=== PATIENT | male | born 1940 | race Asian ===

== ENCOUNTER 2017-10-13 07:12 | Inpatient (IN) | payer OTHER ==
[2017-10-13] MEDS: FAMOTIDINE 20 MG TAB PO (06:00)
[2017-10-13] MEDS: DIPHENHYDRAMINE 50 MG CAP PO (06:00)
[2017-10-13] MEDS: DIAZEPAM 5 MG TAB PO (06:00)
[~2017-10-13 07:12] MED LIST: SOD CHLORIDE 0.45% 1,000 ML IV
[2017-10-13 08:17] LABS: ADD MAN DIFF? NO
[2017-10-13 08:25] LABS: BASOPHILS % 0.4 % (0.0-2.0); EOSINOPHILS # 0.2 10^3/ul (0.0-0.5); EOSINOPHILS % 2.4 % (0.0-7.0); HEMATOCRIT 46.7 % (42.0-52.0); LYMPHOCYTES # 1.4 10^3/ul (0.8-2.9); LYMPHOCYTES % 19.9 % (15.0-51.0); MEAN CORPUSCULAR HEMOGLOBIN 31.2 pg (29.0-33.0); MEAN CORPUSCULAR HGB CONC 34.3 g/dl (32.0-37.0); MEAN PLATELET VOLUME 9.4 fl (7.4-10.4); MONOCYTE # 0.5 10^3/ul (0.3-0.9); MONOCYTES % 7.2 % (0.0-11.0); NEUTROPHIL # 4.9 10^3/ul (1.6-7.5); NEUTROPHILS % 68.4 % (39.0-77.0); PLATELET COUNT 175 10^3/UL (140-415); RED BLOOD COUNT 5.13 10^6/ul (4.70-6.10); RED CELL DISTRIBUTION WIDTH 11.9 % (11.5-14.5)
[2017-10-13 08:25] LABS: WHITE BLOOD COUNT 7.1 10^3/ul (4.8-10.8)
[2017-10-13 08:49] LABS: INR 0.92; PROTIME 12.4 Sec (11.9-14.9)
[2017-10-13 08:50] LABS: PARTIAL THROMBOPLASTIN TIME 30.3 Sec (25.0-35.0)
[2017-10-13] MEDS ORDERED: NITROGLYCERIN (IC) 100 MCG/ML INJ (08:53)
[2017-10-13] MEDS ORDERED: IODIXANOL LOCM 100 ML BTL (08:53)
[2017-10-13] MEDS ORDERED: VERAPAMIL 5 MG INJ (08:53)
[2017-10-13] MEDS ORDERED: FENTAnyl 50 MCG/ML VIAL (08:53)
[2017-10-13] MEDS ORDERED: HEPARIN 1000 UNITS/ML 10 ML INJ (08:53)
[2017-10-13] MEDS ORDERED: MIDAZOLAM 1 MG/ML 2 ML INJ (08:53)
[2017-10-13] MEDS ORDERED: LIDOCAINE 1% (MDV) 20 ML INJ (08:53)
[2017-10-13 08:54] LABS: ALANINE AMINOTRANSFERASE 30 IU/L (13-69); ALBUMIN 4.7 g/dl (3.3-4.9); ALBUMIN/GLOBULIN RATIO 1.42; ALKALINE PHOSPHATASE 83 IU/L (42-121); ANION GAP 16 (8-16); ASPARTATE AMINO TRANSFERASE 24 IU/L (15-46); BILIRUBIN,INDIRECT 0.7 mg/dl (0-1.1); BILIRUBIN,TOTAL 0.7 mg/dl (0.2-1.3); CARBON DIOXIDE 28 mmol/L (21-31); CHLORIDE 107 mmol/L (97-110); CHOL/HDL RATIO 3.5 RATIO; CHOLESTEROL 116 mg/dl (100-200); GLUCOSE 106 mg/dl (70-220); HDL CHOLESTEROL 33 mg/dl (31-75); LDL CHOLESTEROL,CALCULATED 51 mg/dl; TRIGLYCERIDES 162 mg/dl (0-149)
[2017-10-13 08:55] LABS: BLOOD UREA NITROGEN 18 mg/dl (7-20); CALCIUM 9.7 mg/dl (8.4-10.2); CREATININE 1.04 mg/dl (0.61-1.24); POTASSIUM 4.3 mmol/L (3.5-5.1)
[2017-10-13 08:57] LABS: SODIUM 147 mmol/L (135-144)
[2017-10-13] MEDS ORDERED: ONDANSETRON 4 MG INJ IV ×2 (10:30→17:00)
[2017-10-13] MEDS ORDERED: ACETAMINOPHEN 325 MG TAB PO ×2 (10:30→17:00)
[2017-10-13] MEDS ORDERED: AL HYDROX/MG HYDROX/SIMETH 30 ML CUP PO (10:30)
[2017-10-13] MEDS: HOLD all METFORMIN and METFORMIN CONTAINING medications for 48 hours post procedure. Chec XX (10:30)
[2017-10-13] MEDS ORDERED: morphine 2 MG INJ IV (10:30)
[2017-10-13] MEDS: SOD CHLORIDE 0.9% 1,000 ML IV (10:56)
[2017-10-13] MEDS: METOPROLOL (XL) 25 MG TAB PO (17:00)
[2017-10-13] MEDS ORDERED: DOCUSATE SODIUM 100 MG CAP PO (17:00)
[2017-10-13] MEDS ORDERED: NITROGLYCERIN (SL) 0.4 MG TAB SL (17:00)
[2017-10-13 18:00] LABS: URIC ACID 7.7 mg/dl (3.1-7.9)
[2017-10-13] MEDS: TAMSULOSIN (SR) 0.4 MG CAP PO (18:09)
[2017-10-13] MEDS: ISOSORBIDE MONONITRATE(SR)30 MG TAB PO (18:10)
[2017-10-14] MEDS: PANTOPRAZOLE (EC) 40 MG TAB PO (05:28)
[2017-10-14] MEDS: HYDROCODONE/APAP (5/325) TAB PO ×2 (05:36→21:42)
[2017-10-14 07:59] LABS: ADD MAN DIFF? NO
[2017-10-14 08:03] LABS: BASOPHILS % 0.3 % (0.0-2.0); EOSINOPHILS # 0.1 10^3/ul (0.0-0.5); EOSINOPHILS % 1.4 % (0.0-7.0); HEMATOCRIT 44.9 % (42.0-52.0); HEMOGLOBIN 15.2 g/dl (14.0-18.0); LYMPHOCYTES # 1.5 10^3/ul (0.8-2.9); MEAN CORPUSCULAR HEMOGLOBIN 31.3 pg (29.0-33.0); MEAN CORPUSCULAR HGB CONC 33.9 g/dl (32.0-37.0); MEAN CORPUSCULAR VOLUME 92.4 fl (82.0-101.0); MEAN PLATELET VOLUME 9.9 fl (7.4-10.4); MONOCYTE # 0.5 10^3/ul (0.3-0.9); MONOCYTES % 7.2 % (0.0-11.0); NEUTROPHIL # 4.8 10^3/ul (1.6-7.5); PLATELET COUNT 173 10^3/UL (140-415); RED BLOOD COUNT 4.86 10^6/ul (4.70-6.10); RED CELL DISTRIBUTION WIDTH 11.9 % (11.5-14.5)
[2017-10-14 08:25] LABS: ANION GAP 17 (8-16); BLOOD UREA NITROGEN 17 mg/dl (7-20); CALCIUM 8.8 mg/dl (8.4-10.2); CARBON DIOXIDE 24 mmol/L (21-31); CHLORIDE 109 mmol/L (97-110); GLUCOSE 101 mg/dl (70-220); POTASSIUM 4.1 mmol/L (3.5-5.1); SODIUM 146 mmol/L (135-144)
[2017-10-14] MEDS: TAMSULOSIN (SR) 0.4 MG CAP PO (08:29)
[2017-10-14] MEDS: METOPROLOL (XL) 25 MG TAB PO (08:31)
[2017-10-14] MEDS: ISOSORBIDE MONONITRATE(SR)30 MG TAB PO (08:31)
[2017-10-14] MEDS: HOLD all METFORMIN and METFORMIN CONTAINING medications for 48 hours post procedure. Chec XX (08:32)
[2017-10-15] MEDS ORDERED: CEFAZOLIN 2 GM/50 ML (PMX) 50 ML IVPB (06:00)
[2017-10-15] MEDS: PANTOPRAZOLE (EC) 40 MG TAB PO (06:21)
[2017-10-15] MEDS ORDERED: NITROGLYCERIN 50 MG/D5W 250 ML BTL (07:00)
[2017-10-15] MEDS ORDERED: DOPamine-D5W 1.6 MG/ML 250 ML (07:00)
[2017-10-15] MEDS: ISOSORBIDE MONONITRATE(SR)30 MG TAB PO (08:24)
[2017-10-15] MEDS: TAMSULOSIN (SR) 0.4 MG CAP PO (08:25)
[2017-10-15] MEDS: LOSARTAN 25 MG TAB PO (08:25)
[2017-10-15] MEDS ORDERED: LISINOPRIL 5 MG TAB PO (09:00)
[2017-10-15] MEDS ORDERED: METOPROLOL (XL) 25 MG TAB PO (09:00)
[2017-10-15] MEDS: EPINEPHrine 4 MG in DEXTROSE 5% 246 ML IV (13:30)
[2017-10-15] MEDS ORDERED: PHENYLephrine 20MG IN 250 ML 250 ML IV ×2 (13:30→19:00)
[2017-10-15] MEDS: HEPARIN (10000 UNITS/ML) 10,000 UNIT, MILRINONE LACTATE 10 MG in SOD CHLORIDE 0.9% 1,00... SC (13:30)
[2017-10-15] MEDS: ASPIRIN 600 MG SUPP PR (13:30)
[2017-10-15] MEDS: INSULIN HUMAN REGULAR 100 UNIT in SOD CHLORIDE 0.9% 99 ML IVPB (13:30)
[2017-10-15] MEDS ORDERED: NORepinephrine 8MG/250 ML (PMX 250 ML IV (13:30)
[2017-10-15] MEDS: MILRINONE LACTATE 2 MG in SOD CHLORIDE 0.9% 50 ML IV (13:30)
[2017-10-15] MEDS ORDERED: MIDAZOLAM 5 ML ×3 (13:35→17:41)
[2017-10-15] MEDS ORDERED: POTASSIUM CHLORIDE 40 MEQ INJ (13:36)
[2017-10-15] MEDS ORDERED: HEPARIN 1000 UNITS/ML 10 ML INJ ×2 (13:36→14:34)
[2017-10-15] MEDS ORDERED: LIDOCAINE 100 MG SYRINGE (13:37)
[2017-10-15] MEDS ORDERED: CA CHLORIDE 10% 10 ML SYRINGE (13:37)
[2017-10-15] MEDS ORDERED: MANNITOL 20% 250 ML IV (13:38)
[2017-10-15] MEDS ORDERED: NA BICARBONATE 8.4% 50 ML SYG ×2 (13:38)
[2017-10-15] MEDS ORDERED: AMINOCAPROIC ACID 5 GM INJ (13:38)
[2017-10-15] MEDS ORDERED: MAGNESIUM SULFATE (MG) 50% 10 ML INJ (13:38)
[2017-10-15] MEDS ORDERED: ALBUMIN HUMAN 25% 100 ML (13:38)
[2017-10-15] MEDS ORDERED: PHENYLephrine 10 MG INJ (13:39)
[2017-10-15] MEDS ORDERED: CEFAZOLIN 1 GM INJ ×2 (14:22→17:06)
[2017-10-15] MEDS ORDERED: PHENYLephrine (100 MCG/ML) 5ML SYG ×2 (15:06→17:05)
[2017-10-15] MEDS: HEPARIN 1000 UNITS/ML 10 ML INJ (15:31)
[2017-10-15] MEDS: VANCOMYCIN 1 GM INJ (15:32)
[2017-10-15] MEDS: PAPAVERINE 60 MG INJ (15:32)
[2017-10-15] MEDS ORDERED: PROTAMINE 250 MG INJ (17:06)
[2017-10-15] MEDS ORDERED: ETOMIDATE 20 MG INJ (17:32)
[2017-10-15] MEDS ORDERED: ROCURONIUM 50 MG INJ (17:32)
[2017-10-15] MEDS ORDERED: LIDOCAINE 2% (SDV) 5 ML INJ (17:32)
[2017-10-15] MEDS ORDERED: FUROSEMIDE 20 MG INJ (17:33)
[2017-10-15] MEDS ORDERED: DEXTROSE 50% 50 ML SYRINGE IV ×2 (18:30)
[2017-10-15] MEDS ORDERED: HYDROmorphONE 0.5 MG/0.5 ML SYG IV (18:30)
[2017-10-15] MEDS ORDERED: ACETAMINOPHEN 650MG/20.3ML CUP NGT (18:30)
[2017-10-15] MEDS ORDERED: MAGNESIUM SULFATE 1 GM/D5W 100 ML IVPB (18:30)
[2017-10-15] MEDS ORDERED: OXYCODONE/ACETAMINOPHEN (5/325) TAB PO (18:30)
[2017-10-15] MEDS ORDERED: POTASSIUM CHLORIDE 50 ML IVPB (18:30)
[2017-10-15] MEDS: ACCU-CHEK XX ×6 (18:57→23:34)
[2017-10-15] MEDS ORDERED: NITROGLYCERIN 50 MG/D5W (PMX) 250 ML IV (19:00)
[2017-10-15] MEDS ORDERED: DOPamine-D5W 1.6 MG/ML 250 ML IV (19:00)
[2017-10-15 19:11] LABS: ABNORMAL IP MESSAGE 1; HEMATOCRIT 35.4 % (42.0-52.0); HEMOGLOBIN 12.3 g/dl (14.0-18.0); MEAN CORPUSCULAR HEMOGLOBIN 31.8 pg (29.0-33.0); MEAN CORPUSCULAR HGB CONC 34.7 g/dl (32.0-37.0); MEAN CORPUSCULAR VOLUME 91.5 fl (82.0-101.0); PLATELET COUNT 99 10^3/UL (140-415); POSITIVE DIFF @See below; RED BLOOD COUNT 3.87 10^6/ul (4.70-6.10); RED CELL DISTRIBUTION WIDTH 12.1 % (11.5-14.5)
[2017-10-15 19:11] LABS: WHITE BLOOD COUNT 14.4 10^3/ul (4.8-10.8)
[2017-10-15 19:14] LABS: ADD MAN DIFF? YES
[2017-10-15 19:17] LABS: MODE VENT - AC; MetHgb Mixed Venous 0.6 %; Mixed Venous COHb 0.2 %; Mixed Venous Oxygen Sat 73.6 mmHG (65.0-75.0); Mixed Venous Total Hemglobin 13.2 g/dl; Sample Type BLMV
[2017-10-15 19:22] LABS: Arterial Blood Gas Oxygen Sat 98.3 mmHG (95.0-100.0); Arterial COHb 0.3 % (0.0-3.0); Arterial Fraction of Oxyhgb 97.5 % (93.0-99.0); Arterial HCO3 24.9 mmol/L (22.0-26.0); Arterial MetHb 0.5 % (0.0-1.5); Arterial Total Hemglobin 13.2 g/dl (12.0-18.0); Arterial pCO2 46.2 mmhg (35-45); MODE VENT - AC; Site A-Line
[2017-10-15 19:30] LABS: Site VENOUS LINE
[2017-10-15] MEDS: CEFAZOLIN 1 GM/50 ML (PMX) 50 ML IVPB (19:32)
[2017-10-15] MEDS: DOPamine-D5W 1.6 MG/ML 250 ML IV (19:34)
[2017-10-15 19:35] LABS: ANION GAP 17 (8-16); BLOOD UREA NITROGEN 17 mg/dl (7-20); CALCIUM 8.2 mg/dl (8.4-10.2); CARBON DIOXIDE 26 mmol/L (21-31); CHLORIDE 106 mmol/L (97-110); CREATININE 0.86 mg/dl (0.61-1.24); GLUCOSE 123 mg/dl (70-220); MAGNESIUM 2.9 mg/dl (1.7-2.5); POTASSIUM 3.6 mmol/L (3.5-5.1); SODIUM 145 mmol/L (135-144)
[2017-10-15] MEDS: NITROGLYCERIN 50 MG/D5W (PMX) 250 ML IV (19:35)
[2017-10-15] MEDS: INSULIN HUMAN REGULAR 100 UNIT in SOD CHLORIDE 0.9% 99 ML IV (19:37)
[2017-10-15] MEDS: POTASSIUM CHLORIDE 40 MEQ, CALCIUM CHLORIDE 10% 1 GM in DEXTROSE 5%-0.225% NACL 1,000 ML IV (19:37)
[2017-10-15 19:40] LABS: BAND NEUTROPHILS % (M) 7 % (0-4); GIANT THROMBO% (M) 4 % (0-0); LYMPHOCYTES #M 2.4 10^3/ul (0.8-2.9); LYMPHOCYTES % (M) 17 % (15-51); MONOCYTE #M 0.1 10^3/ul (0.3-0.9); MONOCYTES % (M) 1 % (0-11); PLATELET ESTIMATE NORMAL; SEG NEUT #M 10.9 10^3/ul (1.6-7.5); SEGMENTED NEUTROPHILS (M) % 75 % (39-77); SMUDGE%M 16 % (0-0)
[2017-10-15 19:54] LABS: INR 1.37; PROTIME 17.1 Sec (11.9-14.9); PT RATIO 1.3
[2017-10-15 19:55] LABS: PARTIAL THROMBOPLASTIN TIME 30.3 Sec (25.0-35.0)
[2017-10-15] MEDS: ALBUMIN HUMAN 5% 250 ML IV ×2 (20:17→21:26)
[2017-10-15] MEDS: PHENYLephrine 40 MG in DEXTROSE 5% 496 ML IV (20:24)
[2017-10-15] MEDS: KCL 30 MEQ in NS 250 ML IVPB X1 IVPB (20:25)
[2017-10-15] MEDS: HYDROmorphONE 0.5 MG/0.5 ML SYG IV (21:12)
[2017-10-15] MEDS: ACETAMINOPHEN 650 MG SUPP PR (21:30)
[2017-10-16] MEDS: ACCU-CHEK XX ×24 (00:27→23:30)
[2017-10-16 01:19] LABS: POTASSIUM 4.6 mmol/L (3.5-5.1)
[2017-10-16] MEDS: CEFAZOLIN 1 GM/50 ML (PMX) 50 ML IVPB (02:00)
[2017-10-16] MEDS: POTASSIUM CHLORIDE 10 MEQ in SOD CHLORIDE 0.9% 50 ML IV (02:56)
[2017-10-16] MEDS: OXYCODONE/ACETAMINOPHEN (5/325) TAB PO ×2 (03:50→08:15)
[2017-10-16] MEDS: ONDANSETRON 4 MG INJ IV (04:14)
[2017-10-16] MEDS: PANTOPRAZOLE (EC) 40 MG TAB PO (05:11)
[2017-10-16 05:12] LABS: ADD MAN DIFF? NO
[2017-10-16 05:13] LABS: ABNORMAL IP MESSAGE 1; BASOPHILS % 0.1 % (0.0-2.0); EOSINOPHILS % 0.2 % (0.0-7.0); HEMATOCRIT 34.4 % (42.0-52.0); HEMOGLOBIN 11.5 g/dl (14.0-18.0); LYMPHOCYTES # 0.6 10^3/ul (0.8-2.9); LYMPHOCYTES % 4.8 % (15.0-51.0); MEAN CORPUSCULAR HEMOGLOBIN 31.2 pg (29.0-33.0); MEAN CORPUSCULAR HGB CONC 33.4 g/dl (32.0-37.0); MEAN CORPUSCULAR VOLUME 93.2 fl (82.0-101.0); MEAN PLATELET VOLUME 9.9 fl (7.4-10.4); MONOCYTES % 7.8 % (0.0-11.0); NEUTROPHIL # 10.6 10^3/ul (1.6-7.5); PLATELET COUNT 114 10^3/UL (140-415); POSITIVE DIFF @See below; RED BLOOD COUNT 3.69 10^6/ul (4.70-6.10); RED CELL DISTRIBUTION WIDTH 12.4 % (11.5-14.5)
[2017-10-16 05:13] LABS: WHITE BLOOD COUNT 12.4 10^3/ul (4.8-10.8)
[2017-10-16 05:38] LABS: ANION GAP 17 (8-16); BLOOD UREA NITROGEN 16 mg/dl (7-20); CALCIUM 8.8 mg/dl (8.4-10.2); CARBON DIOXIDE 27 mmol/L (21-31); CHLORIDE 108 mmol/L (97-110); CREATININE 0.98 mg/dl (0.61-1.24); GLUCOSE 156 mg/dl (70-220); MAGNESIUM 2.2 mg/dl (1.7-2.5); SODIUM 147 mmol/L (135-144)
[2017-10-16 05:54] LABS: INR 1.19; PARTIAL THROMBOPLASTIN TIME 40.4 Sec (25.0-35.0); PROTIME 15.3 Sec (11.9-14.9); PT RATIO 1.2
[2017-10-16] MEDS: PHENYLephrine 40 MG in DEXTROSE 5% 496 ML IV (06:51)
[2017-10-16] MEDS: TAMSULOSIN (SR) 0.4 MG CAP PO (08:15)
[2017-10-16] MEDS: ASPIRIN 325 MG TAB PO (08:15)
[2017-10-16] MEDS: ASPIRIN (EC) 81 MG TAB PO (09:00)
[2017-10-16] MEDS: KETOROLAC 15 MG INJ IV ×2 (09:59→19:39)
[2017-10-16] MEDS: ENOXAPARIN 40 MG/0.4 ML SYG SC (10:03)
[2017-10-16 11:32] LABS: AADO2 Arterial 102.2 mmHg (7.0-24.0); Arterial Base Excess -0.2 mmol/L (-3.0-3); Arterial COHb 0.3 % (0.0-3.0); Arterial Fraction of Oxyhgb 97.2 % (93.0-99.0); Arterial MetHb 0.5 % (0.0-1.5); Arterial Total Hemglobin 12.5 g/dl (12.0-18.0); Arterial pCO2 43.3 mmhg (35-45); Blood Gas PS 5; MODE VENT - CPAP; Site A-Line
[2017-10-16] MEDS: FUROSEMIDE 20 MG INJ IV (13:26)
[2017-10-16] MEDS: ALBUMIN HUMAN 5% 250 ML IV (13:26)
[2017-10-16] MEDS: HYDROmorphONE 0.5 MG/0.5 ML SYG IV ×3 (14:31→22:17)
[2017-10-16 19:41] LABS: HEMATOCRIT 33.8 % (42.0-52.0)
[2017-10-16] MEDS: ATORVASTATIN 40 MG TAB PO (20:19)
[2017-10-17] MEDS: ACCU-CHEK XX ×15 (00:14→13:52)
[2017-10-17] MEDS: HYDROmorphONE 0.5 MG/0.5 ML SYG IV ×4 (02:12→17:14)
[2017-10-17 04:57] LABS: ADD MAN DIFF? NO
[2017-10-17] MEDS: KETOROLAC 15 MG INJ IV ×2 (04:57→17:41)
[2017-10-17 04:58] LABS: WHITE BLOOD COUNT 11.4 10^3/ul (4.8-10.8)
[2017-10-17 04:58] LABS: ABNORMAL IP MESSAGE 1; BASOPHILS % 0.2 % (0.0-2.0); EOSINOPHILS # 0.1 10^3/ul (0.0-0.5); EOSINOPHILS % 0.6 % (0.0-7.0); HEMATOCRIT 33.1 % (42.0-52.0); HEMOGLOBIN 11.1 g/dl (14.0-18.0); LYMPHOCYTES # 0.8 10^3/ul (0.8-2.9); LYMPHOCYTES % 7.3 % (15.0-51.0); MEAN CORPUSCULAR HGB CONC 33.5 g/dl (32.0-37.0); MEAN CORPUSCULAR VOLUME 95.4 fl (82.0-101.0); MEAN PLATELET VOLUME 10.6 fl (7.4-10.4); MONOCYTES % 8.9 % (0.0-11.0); NEUTROPHIL # 9.4 10^3/ul (1.6-7.5); NEUTROPHILS % 82.5 % (39.0-77.0); PLATELET COUNT 87 10^3/UL (140-415); POSITIVE DIFF @See below; RED BLOOD COUNT 3.47 10^6/ul (4.70-6.10); RED CELL DISTRIBUTION WIDTH 12.5 % (11.5-14.5)
[2017-10-17] MEDS ORDERED: AMIODARONE 150MG/D5W BOLUS 100 ML (05:17)
[2017-10-17] MEDS: AMIODARONE 150MG/D5W BOLUS 100 ML IV (05:18)
[2017-10-17 05:23] LABS: ALANINE AMINOTRANSFERASE 24 IU/L (13-69); ALBUMIN 3.6 g/dl (3.3-4.9); ALKALINE PHOSPHATASE 38 IU/L (42-121); ANION GAP 14 (8-16); ASPARTATE AMINO TRANSFERASE 34 IU/L (15-46); BILIRUBIN,INDIRECT 1.2 mg/dl (0-1.1); BILIRUBIN,TOTAL 1.2 mg/dl (0.2-1.3); BLOOD UREA NITROGEN 28 mg/dl (7-20); CALCIUM 8.4 mg/dl (8.4-10.2); CARBON DIOXIDE 26 mmol/L (21-31); CHLORIDE 106 mmol/L (97-110); CREATININE 1.36 mg/dl (0.61-1.24); GLUCOSE 114 mg/dl (70-220); POTASSIUM 4.4 mmol/L (3.5-5.1); SODIUM 142 mmol/L (135-144)
[2017-10-17] MEDS: AMIODARONE 900 MG in DEXTROSE 5% 482 ML IV (05:43)
[2017-10-17] MEDS: PHENYLephrine 40 MG in DEXTROSE 5% 496 ML IV (05:55)
[2017-10-17] MEDS: PANTOPRAZOLE (EC) 40 MG TAB PO (05:58)
[2017-10-17] MEDS: TAMSULOSIN (SR) 0.4 MG CAP PO (08:22)
[2017-10-17] MEDS: MAGNESIUM SULFATE 4 GM/100 ML 100 ML IVPB (08:29)
[2017-10-17] MEDS: ENOXAPARIN 40 MG/0.4 ML SYG SC (08:29)
[2017-10-17] MEDS: INSULIN HUMAN REGULAR 100 UNIT in SOD CHLORIDE 0.9% 99 ML IV (12:35)
[2017-10-17] MEDS ORDERED: GLUCAGON 1 MG INJ IM (14:00)
[2017-10-17] MEDS ORDERED: GLUCOSE GEL 15 GRAM TUBE BUCCAL (14:00)
[2017-10-17] MEDS ORDERED: GLUCOSE GEL 15 GRAM TUBE PO ×2 (14:00)
[2017-10-17] MEDS: INSULIN GLARGINE [LANtus] 3 ML PEN SC (14:58)
[2017-10-17] MEDS: OXYCODONE/ACETAMINOPHEN (5/325) TAB PO (15:00)
[2017-10-17] MEDS: SOD CHLORIDE 0.45% 1,000 ML IV (15:50)
[2017-10-17] MEDS: INSULIN ASPART [NOVOLOG] 3 ML PEN SC ×2 (17:00→20:53)
[2017-10-17] MEDS: AMIODARONE 200 MG TAB PO (20:54)
[2017-10-17] MEDS: ATORVASTATIN 40 MG TAB PO (20:54)
[2017-10-18 05:11] LABS: ADD MAN DIFF? NO
[2017-10-18 05:25] LABS: ABNORMAL IP MESSAGE 1; BASOPHILS % 0.1 % (0.0-2.0); EOSINOPHILS # 0.1 10^3/ul (0.0-0.5); HEMATOCRIT 27.7 % (42.0-52.0); HEMOGLOBIN 9.4 g/dl (14.0-18.0); LYMPHOCYTES # 0.7 10^3/ul (0.8-2.9); MEAN CORPUSCULAR HEMOGLOBIN 31.3 pg (29.0-33.0); MEAN CORPUSCULAR HGB CONC 33.9 g/dl (32.0-37.0); MEAN CORPUSCULAR VOLUME 92.3 fl (82.0-101.0); MEAN PLATELET VOLUME 10.7 fl (7.4-10.4); MONOCYTES % 10.2 % (0.0-11.0); NEUTROPHIL # 8.3 10^3/ul (1.6-7.5); NEUTROPHILS % 80.9 % (39.0-77.0); PLATELET COUNT 94 10^3/UL (140-415); POSITIVE DIFF @See below; RED CELL DISTRIBUTION WIDTH 12.5 % (11.5-14.5)
[2017-10-18 05:25] LABS: WHITE BLOOD COUNT 10.2 10^3/ul (4.8-10.8)
[2017-10-18] MEDS: PANTOPRAZOLE (EC) 40 MG TAB PO (05:57)
[2017-10-18] MEDS: OXYCODONE/ACETAMINOPHEN (5/325) TAB PO ×3 (06:27→19:35)
[2017-10-18 06:42] LABS: ALANINE AMINOTRANSFERASE 24 IU/L (13-69); ALBUMIN 3.2 g/dl (3.3-4.9); ALBUMIN/GLOBULIN RATIO 1.28; ALKALINE PHOSPHATASE 45 IU/L (42-121); ANION GAP 12 (8-16); ASPARTATE AMINO TRANSFERASE 24 IU/L (15-46); BILIRUBIN,INDIRECT 0.6 mg/dl (0-1.1); BILIRUBIN,TOTAL 0.6 mg/dl (0.2-1.3); BLOOD UREA NITROGEN 31 mg/dl (7-20); CALCIUM 7.9 mg/dl (8.4-10.2); CARBON DIOXIDE 27 mmol/L (21-31); CHLORIDE 100 mmol/L (97-110); CREATININE 1.22 mg/dl (0.61-1.24); GLUCOSE 121 mg/dl (70-220); POTASSIUM 3.7 mmol/L (3.5-5.1); SODIUM 135 mmol/L (135-144); TOTAL PROTEIN 5.7 g/dl (6.1-8.1)
[2017-10-18] MEDS: INSULIN ASPART [NOVOLOG] 3 ML PEN SC (07:35)
[2017-10-18] MEDS: TAMSULOSIN (SR) 0.4 MG CAP PO (09:24)
[2017-10-18] MEDS: AMIODARONE 200 MG TAB PO ×2 (09:24→20:25)
[2017-10-18] MEDS: ENOXAPARIN 40 MG/0.4 ML SYG SC (09:26)
[2017-10-18] MEDS: FUROSEMIDE 20 MG INJ IV (13:56)
[2017-10-18] MEDS: ASPIRIN 81 MG TAB PO (13:56)
[2017-10-18] MEDS: KETOROLAC 15 MG INJ IV (16:46)
[2017-10-18] MEDS: INSULIN GLARGINE [LANtus] 3 ML PEN SC (19:44)
[2017-10-18] MEDS: ATORVASTATIN 40 MG TAB PO (20:26)
[2017-10-18] MEDS: METOPROLOL 5 MG INJ IV (20:45)
[2017-10-19] MEDS ORDERED: NORepinephrine 8MG/250 ML (PMX 250 ML IV (02:00)
[2017-10-19] MEDS: SOD CHLORIDE 0.9% 500 ML IV (02:17)
[2017-10-19 06:04] LABS: ADD MAN DIFF? NO
[2017-10-19 06:07] LABS: BASOPHILS % 0.1 % (0.0-2.0); EOSINOPHILS # 0.2 10^3/ul (0.0-0.5); EOSINOPHILS % 1.8 % (0.0-7.0); HEMATOCRIT 29.2 % (42.0-52.0); HEMOGLOBIN 10.2 g/dl (14.0-18.0); LYMPHOCYTES # 0.9 10^3/ul (0.8-2.9); LYMPHOCYTES % 9.5 % (15.0-51.0); MEAN CORPUSCULAR HEMOGLOBIN 31.9 pg (29.0-33.0); MEAN CORPUSCULAR HGB CONC 34.9 g/dl (32.0-37.0); MEAN CORPUSCULAR VOLUME 91.3 fl (82.0-101.0); MEAN PLATELET VOLUME 10.3 fl (7.4-10.4); MONOCYTE # 0.9 10^3/ul (0.3-0.9); MONOCYTES % 9.8 % (0.0-11.0); NEUTROPHIL # 7.4 10^3/ul (1.6-7.5); PLATELET COUNT 129 10^3/UL (140-415); RED CELL DISTRIBUTION WIDTH 12.4 % (11.5-14.5)
[2017-10-19 06:07] LABS: WHITE BLOOD COUNT 9.5 10^3/ul (4.8-10.8)
[2017-10-19] MEDS: OXYCODONE/ACETAMINOPHEN (5/325) TAB PO (06:08)
[2017-10-19] MEDS: PANTOPRAZOLE (EC) 40 MG TAB PO (06:11)
[2017-10-19 06:36] LABS: PHOSPHORUS 2.5 mg/dl (2.5-4.9)
[2017-10-19 06:36] LABS: ANION GAP 13 (8-16); BLOOD UREA NITROGEN 29 mg/dl (7-20); CALCIUM 7.7 mg/dl (8.4-10.2); CARBON DIOXIDE 24 mmol/L (21-31); CHLORIDE 103 mmol/L (97-110); GLUCOSE 111 mg/dl (70-220); MAGNESIUM 2.2 mg/dl (1.7-2.5); POTASSIUM 3.7 mmol/L (3.5-5.1); SODIUM 136 mmol/L (135-144)
[2017-10-19] MEDS: ASPIRIN 81 MG TAB PO (08:58)
[2017-10-19] MEDS: ENOXAPARIN 40 MG/0.4 ML SYG SC (08:59)
[2017-10-19] MEDS: TAMSULOSIN (SR) 0.4 MG CAP PO (08:59)
[2017-10-19] MEDS: AMIODARONE 200 MG TAB PO ×2 (08:59→21:23)
[2017-10-19] MEDS: METOPROLOL (XL) 25 MG TAB PO (08:59)
[2017-10-19] MEDS: SOD CHLORIDE 0.9% 1,000 ML IV (14:59)
[2017-10-19] MEDS: metroNIDAZOLE 500 MG TAB PO ×2 (14:59→21:23)
[2017-10-19] MEDS: SACCHAROMYCES BOULARDII 250 MG CAP PO ×2 (14:59→23:34)
[2017-10-19] MEDS: INSULIN GLARGINE [LANtus] 3 ML PEN SC (21:21)
[2017-10-19] MEDS: ATORVASTATIN 40 MG TAB PO (21:22)
[2017-10-20] MEDS: OXYCODONE/ACETAMINOPHEN (5/325) TAB PO ×4 (00:14→21:21)
[2017-10-20] MEDS: PANTOPRAZOLE (EC) 40 MG TAB PO (05:16)
[2017-10-20] MEDS: metroNIDAZOLE 500 MG TAB PO (05:16)
[2017-10-20 07:48] LABS: ADD MAN DIFF? NO
[2017-10-20 07:53] LABS: WHITE BLOOD COUNT 9.1 10^3/ul (4.8-10.8)
[2017-10-20 07:53] LABS: BASOPHILS % 0.1 % (0.0-2.0); EOSINOPHILS # 0.2 10^3/ul (0.0-0.5); HEMATOCRIT 30.1 % (42.0-52.0); HEMOGLOBIN 10.3 g/dl (14.0-18.0); LYMPHOCYTES # 1.1 10^3/ul (0.8-2.9); LYMPHOCYTES % 12.1 % (15.0-51.0); MEAN CORPUSCULAR HEMOGLOBIN 31.8 pg (29.0-33.0); MEAN CORPUSCULAR HGB CONC 34.2 g/dl (32.0-37.0); MEAN CORPUSCULAR VOLUME 92.9 fl (82.0-101.0); MEAN PLATELET VOLUME 9.9 fl (7.4-10.4); MONOCYTE # 0.8 10^3/ul (0.3-0.9); MONOCYTES % 8.6 % (0.0-11.0); NEUTROPHIL # 6.8 10^3/ul (1.6-7.5); NEUTROPHILS % 75.1 % (39.0-77.0); PLATELET COUNT 166 10^3/UL (140-415); RED BLOOD COUNT 3.24 10^6/ul (4.70-6.10); RED CELL DISTRIBUTION WIDTH 12.8 % (11.5-14.5)
[2017-10-20 08:10] LABS: ALANINE AMINOTRANSFERASE 45 IU/L (13-69); ALBUMIN 3.3 g/dl (3.3-4.9); ALBUMIN/GLOBULIN RATIO 1.17; ALKALINE PHOSPHATASE 110 IU/L (42-121); ANION GAP 13 (8-16); ASPARTATE AMINO TRANSFERASE 47 IU/L (15-46); BILIRUBIN,INDIRECT 0.7 mg/dl (0-1.1); BILIRUBIN,TOTAL 0.7 mg/dl (0.2-1.3); BLOOD UREA NITROGEN 19 mg/dl (7-20); CALCIUM 7.9 mg/dl (8.4-10.2); CARBON DIOXIDE 24 mmol/L (21-31); CHLORIDE 108 mmol/L (97-110); GLUCOSE 105 mg/dl (70-220); POTASSIUM 3.6 mmol/L (3.5-5.1); SODIUM 141 mmol/L (135-144); TOTAL PROTEIN 6.1 g/dl (6.1-8.1)
[2017-10-20] MEDS: SACCHAROMYCES BOULARDII 250 MG CAP PO ×2 (08:11→21:25)
[2017-10-20] MEDS: TAMSULOSIN (SR) 0.4 MG CAP PO (08:11)
[2017-10-20] MEDS: METOPROLOL (XL) 25 MG TAB PO ×2 (08:12→21:25)
[2017-10-20] MEDS: ASPIRIN 81 MG TAB PO (08:12)
[2017-10-20] MEDS: AMIODARONE 200 MG TAB PO ×2 (08:13→21:26)
[2017-10-20 08:14] LABS: PHOSPHORUS 2.1 mg/dl (2.5-4.9)
[2017-10-20] MEDS: ENOXAPARIN 40 MG/0.4 ML SYG SC ×2 (08:34→21:56)
[2017-10-20] MEDS: SOD PHOS MONO/DIBAS 250 MG TAB PO (14:48)
[2017-10-20] MEDS: VANCOMYCIN HCL 250 MG/5ML POSYG PO ×2 (14:51→16:55)
[2017-10-20] MEDS: DIGOXIN 500 MCG INJ IV (16:53)
[2017-10-20] MEDS: ATORVASTATIN 40 MG TAB PO (21:26)
[2017-10-20] MEDS: INSULIN GLARGINE [LANtus] 3 ML PEN SC (21:30)
[2017-10-21] MEDS: VANCOMYCIN HCL 250 MG/5ML POSYG PO ×4 (00:35→17:26)
[2017-10-21] MEDS: PANTOPRAZOLE (EC) 40 MG TAB PO (06:46)
[2017-10-21] MEDS: OXYCODONE/ACETAMINOPHEN (5/325) TAB PO ×2 (08:21→21:51)
[2017-10-21] MEDS: TAMSULOSIN (SR) 0.4 MG CAP PO (08:22)
[2017-10-21] MEDS: METOPROLOL (XL) 25 MG TAB PO ×2 (08:23→21:51)
[2017-10-21] MEDS: ASPIRIN 81 MG TAB PO (08:23)
[2017-10-21] MEDS: AMIODARONE 200 MG TAB PO ×3 (08:24→21:52)
[2017-10-21] MEDS: SACCHAROMYCES BOULARDII 250 MG CAP PO ×2 (08:25→21:51)
[2017-10-21] MEDS: ENOXAPARIN 40 MG/0.4 ML SYG SC ×2 (08:45→22:06)
[2017-10-21] MEDS: VALSARTAN 80 MG TAB PO (09:00)
[2017-10-21] MEDS: ATORVASTATIN 40 MG TAB PO (21:52)
[2017-10-21] MEDS: INSULIN GLARGINE [LANtus] 3 ML PEN SC (22:05)
[2017-10-22] MEDS: VANCOMYCIN HCL 250 MG/5ML POSYG PO ×4 (01:54→17:29)
[2017-10-22] MEDS: PANTOPRAZOLE (EC) 40 MG TAB PO (06:58)
[2017-10-22 08:07] LABS: ADD MAN DIFF? NO
[2017-10-22 08:11] LABS: WHITE BLOOD COUNT 8.5 10^3/ul (4.8-10.8)
[2017-10-22 08:11] LABS: ABNORMAL IP MESSAGE 1; BASOPHIL # 0.1 10^3/ul (0.0-0.1); BASOPHILS % 0.6 % (0.0-2.0); EOSINOPHILS # 0.2 10^3/ul (0.0-0.5); EOSINOPHILS % 2.6 % (0.0-7.0); HEMATOCRIT 33.6 % (42.0-52.0); LYMPHOCYTES # 1.1 10^3/ul (0.8-2.9); LYMPHOCYTES % 12.9 % (15.0-51.0); MEAN CORPUSCULAR HEMOGLOBIN 30.6 pg (29.0-33.0); MEAN CORPUSCULAR HGB CONC 32.7 g/dl (32.0-37.0); MEAN CORPUSCULAR VOLUME 93.3 fl (82.0-101.0); MEAN PLATELET VOLUME 9.6 fl (7.4-10.4); MONOCYTE # 0.7 10^3/ul (0.3-0.9); MONOCYTES % 8.3 % (0.0-11.0); NEUTROPHIL # 5.9 10^3/ul (1.6-7.5); NEUTROPHILS % 69.1 % (39.0-77.0); NUCLEATED RED BLOOD CELLS% 0.2 /100WBC (0.0-0.0); PLATELET COUNT 283 10^3/UL (140-415); POSITIVE DIFF @See below; RED CELL DISTRIBUTION WIDTH 13.2 % (11.5-14.5)
[2017-10-22] MEDS: SACCHAROMYCES BOULARDII 250 MG CAP PO ×2 (08:20→21:38)
[2017-10-22] MEDS: ASPIRIN 81 MG TAB PO (08:20)
[2017-10-22] MEDS: METOPROLOL (XL) 25 MG TAB PO ×2 (08:20→21:38)
[2017-10-22] MEDS: AMIODARONE 200 MG TAB PO ×3 (08:20→21:38)
[2017-10-22] MEDS: TAMSULOSIN (SR) 0.4 MG CAP PO (08:21)
[2017-10-22] MEDS: VALSARTAN 80 MG TAB PO (08:21)
[2017-10-22] MEDS: ENOXAPARIN 40 MG/0.4 ML SYG SC ×2 (08:23→21:44)
[2017-10-22 08:39] LABS: PHOSPHORUS 2.8 mg/dl (2.5-4.9)
[2017-10-22 08:39] LABS: MAGNESIUM 1.8 mg/dl (1.7-2.5)
[2017-10-22 08:44] LABS: ANION GAP 16 (8-16); BLOOD UREA NITROGEN 15 mg/dl (7-20); CALCIUM 8.3 mg/dl (8.4-10.2); CARBON DIOXIDE 22 mmol/L (21-31); CHLORIDE 109 mmol/L (97-110); GLUCOSE 112 mg/dl (70-220); POTASSIUM 4.1 mmol/L (3.5-5.1); SODIUM 143 mmol/L (135-144)
[2017-10-22] MEDS: OXYCODONE/ACETAMINOPHEN (5/325) TAB PO (09:27)
[2017-10-22] MEDS: ATORVASTATIN 40 MG TAB PO (21:38)
[2017-10-22] MEDS: INSULIN GLARGINE [LANtus] 3 ML PEN SC (21:44)
[2017-10-23] MEDS: VANCOMYCIN HCL 250 MG/5ML POSYG PO ×4 (00:14→18:03)
[2017-10-23] MEDS: OXYCODONE/ACETAMINOPHEN (5/325) TAB PO ×4 (00:19→20:11)
[2017-10-23] MEDS: PANTOPRAZOLE (EC) 40 MG TAB PO (06:44)
[2017-10-23 07:58] LABS: ADD MAN DIFF? NO
[2017-10-23 08:07] LABS: WHITE BLOOD COUNT 9.5 10^3/ul (4.8-10.8)
[2017-10-23 08:07] LABS: ABNORMAL IP MESSAGE 1; BASOPHILS % 0.4 % (0.0-2.0); EOSINOPHILS # 0.3 10^3/ul (0.0-0.5); HEMATOCRIT 34.2 % (42.0-52.0); HEMOGLOBIN 11.1 g/dl (14.0-18.0); LYMPHOCYTES # 1.7 10^3/ul (0.8-2.9); LYMPHOCYTES % 17.7 % (15.0-51.0); MEAN CORPUSCULAR HEMOGLOBIN 30.7 pg (29.0-33.0); MEAN CORPUSCULAR HGB CONC 32.5 g/dl (32.0-37.0); MEAN CORPUSCULAR VOLUME 94.5 fl (82.0-101.0); MEAN PLATELET VOLUME 9.7 fl (7.4-10.4); MONOCYTE # 0.9 10^3/ul (0.3-0.9); MONOCYTES % 9.4 % (0.0-11.0); NEUTROPHIL # 5.6 10^3/ul (1.6-7.5); NEUTROPHILS % 59.1 % (39.0-77.0); PLATELET COUNT 317 10^3/UL (140-415); POSITIVE DIFF @See below; RED BLOOD COUNT 3.62 10^6/ul (4.70-6.10); RED CELL DISTRIBUTION WIDTH 13.6 % (11.5-14.5)
[2017-10-23] MEDS: SACCHAROMYCES BOULARDII 250 MG CAP PO ×2 (09:19→20:11)
[2017-10-23] MEDS: AMIODARONE 200 MG TAB PO ×3 (09:20→20:20)
[2017-10-23] MEDS: VALSARTAN 80 MG TAB PO (09:20)
[2017-10-23] MEDS: ASPIRIN 81 MG TAB PO (09:20)
[2017-10-23] MEDS: TAMSULOSIN (SR) 0.4 MG CAP PO (09:21)
[2017-10-23] MEDS: METOPROLOL (XL) 25 MG TAB PO ×2 (09:21→20:19)
[2017-10-23] MEDS: ENOXAPARIN 40 MG/0.4 ML SYG SC ×2 (09:24→20:14)
[2017-10-23] MEDS: metFORMIN 500 MG TAB PO ×2 (11:57→18:03)
[2017-10-23] MEDS: ATORVASTATIN 40 MG TAB PO (20:11)
[2017-10-23] MEDS: INSULIN GLARGINE [LANtus] 3 ML PEN SC (20:14)
[2017-10-24] MEDS: VANCOMYCIN HCL 250 MG/5ML POSYG PO ×5 (00:27→23:33)
[2017-10-24] MEDS: PANTOPRAZOLE (EC) 40 MG TAB PO (05:23)
[2017-10-24 07:51] LABS: HEMOGLOBIN A1C 5.5 % (0-5.9)
[2017-10-24] MEDS: METOPROLOL (XL) 25 MG TAB PO ×2 (09:00→20:12)
[2017-10-24] MEDS: VALSARTAN 80 MG TAB PO (09:26)
[2017-10-24] MEDS: SACCHAROMYCES BOULARDII 250 MG CAP PO ×2 (09:26→20:10)
[2017-10-24] MEDS: OXYCODONE/ACETAMINOPHEN (5/325) TAB PO ×2 (09:26→12:56)
[2017-10-24] MEDS: ASPIRIN 81 MG TAB PO (09:26)
[2017-10-24] MEDS: AMIODARONE 200 MG TAB PO ×3 (09:26→20:11)
[2017-10-24] MEDS: metFORMIN 500 MG TAB PO (09:27)
[2017-10-24] MEDS: TAMSULOSIN (SR) 0.4 MG CAP PO (09:27)
[2017-10-24] MEDS: ENOXAPARIN 40 MG/0.4 ML SYG SC ×2 (09:46→20:17)
[2017-10-24] MEDS ORDERED: POLYETHYLENE GLYCOL 17 GM PACKET PO (17:30)
[2017-10-24] MEDS ORDERED: GLUCAGON 1 MG INJ IM (18:00)
[2017-10-24] MEDS ORDERED: GLUCOSE GEL 15 GRAM TUBE PO ×2 (18:00)
[2017-10-24] MEDS ORDERED: GLUCOSE GEL 15 GRAM TUBE BUCCAL (18:00)
[2017-10-24] MEDS ORDERED: DEXTROSE 50% 50 ML SYRINGE IV ×2 (18:00)
[2017-10-24] MEDS: INSULIN ASPART [NOVOLOG] 3 ML PEN SC ×2 (18:12→20:18)
[2017-10-24] MEDS: ATORVASTATIN 40 MG TAB PO (20:10)
[2017-10-24] MEDS: INSULIN GLARGINE [LANtus] 3 ML PEN SC (20:17)
[2017-10-25] MEDS: ACCU-CHEK XX (01:32)
[2017-10-25] MEDS: PANTOPRAZOLE (EC) 40 MG TAB PO (06:07)
[2017-10-25] MEDS: VANCOMYCIN HCL 250 MG/5ML POSYG PO ×4 (06:09→23:08)
[2017-10-25] MEDS: INSULIN ASPART [NOVOLOG] 3 ML PEN SC ×4 (07:55→21:00)
[2017-10-25] MEDS: ASPIRIN 81 MG TAB PO (08:16)
[2017-10-25] MEDS: AMIODARONE 200 MG TAB PO ×3 (08:17→20:52)
[2017-10-25] MEDS: VALSARTAN 80 MG TAB PO (08:17)
[2017-10-25] MEDS: SACCHAROMYCES BOULARDII 250 MG CAP PO ×2 (08:17→21:04)
[2017-10-25] MEDS: TAMSULOSIN (SR) 0.4 MG CAP PO (08:18)
[2017-10-25] MEDS: METOPROLOL (XL) 25 MG TAB PO ×2 (08:19→21:00)
[2017-10-25] MEDS: ENOXAPARIN 40 MG/0.4 ML SYG SC (08:28)
[2017-10-25] MEDS: OXYCODONE/ACETAMINOPHEN (5/325) TAB PO ×2 (08:29→21:04)
[2017-10-25] MEDS: morphine 2 MG INJ IV (15:22)
[2017-10-25 16:27] LABS: ADD MAN DIFF? NO
[2017-10-25 16:30] LABS: WHITE BLOOD COUNT 10.7 10^3/ul (4.8-10.8)
[2017-10-25 16:30] LABS: ABNORMAL IP MESSAGE 1; BASOPHIL # 0.1 10^3/ul (0.0-0.1); BASOPHILS % 0.5 % (0.0-2.0); EOSINOPHILS # 0.3 10^3/ul (0.0-0.5); EOSINOPHILS % 2.8 % (0.0-7.0); HEMATOCRIT 36.2 % (42.0-52.0); HEMOGLOBIN 11.8 g/dl (14.0-18.0); LYMPHOCYTES # 1.4 10^3/ul (0.8-2.9); LYMPHOCYTES % 12.8 % (15.0-51.0); MEAN CORPUSCULAR HGB CONC 32.6 g/dl (32.0-37.0); MEAN PLATELET VOLUME 9.6 fl (7.4-10.4); MONOCYTE # 0.9 10^3/ul (0.3-0.9); MONOCYTES % 8.2 % (0.0-11.0); NEUTROPHILS % 65.9 % (39.0-77.0); PLATELET COUNT 369 10^3/UL (140-415); POSITIVE DIFF @See below; RED BLOOD COUNT 3.81 10^6/ul (4.70-6.10); RED CELL DISTRIBUTION WIDTH 13.5 % (11.5-14.5)
[2017-10-25 17:09] LABS: ANION GAP 17 (8-16); BLOOD UREA NITROGEN 22 mg/dl (7-20); CALCIUM 9.2 mg/dl (8.4-10.2); CARBON DIOXIDE 26 mmol/L (21-31); CHLORIDE 104 mmol/L (97-110); CREATININE 1.09 mg/dl (0.61-1.24); GLUCOSE 108 mg/dl (70-220); SODIUM 142 mmol/L (135-144)
[2017-10-25] MEDS: APIXABAN 5 MG TABLET PO (20:52)
[2017-10-25] MEDS: ATORVASTATIN 40 MG TAB PO (20:52)
[2017-10-25] MEDS: INSULIN GLARGINE [LANtus] 3 ML PEN SC (20:56)
[2017-10-26] MEDS: ACCU-CHEK XX (02:31)
[2017-10-26] MEDS: VANCOMYCIN HCL 250 MG/5ML POSYG PO ×3 (05:17→17:39)
[2017-10-26] MEDS: PANTOPRAZOLE (EC) 40 MG TAB PO (05:17)
[2017-10-26] MEDS: INSULIN ASPART [NOVOLOG] 3 ML PEN SC ×4 (07:55→20:43)
[2017-10-26] MEDS: AMIODARONE 200 MG TAB PO ×3 (08:56→20:36)
[2017-10-26] MEDS: APIXABAN 5 MG TABLET PO ×2 (08:56→20:36)
[2017-10-26] MEDS: ASPIRIN 81 MG TAB PO (08:56)
[2017-10-26] MEDS: TAMSULOSIN (SR) 0.4 MG CAP PO (08:57)
[2017-10-26] MEDS: SACCHAROMYCES BOULARDII 250 MG CAP PO ×2 (08:57→20:36)
[2017-10-26] MEDS: METOPROLOL (XL) 25 MG TAB PO ×2 (08:57→20:36)
[2017-10-26] MEDS: OXYCODONE/ACETAMINOPHEN (5/325) TAB PO (08:58)
[2017-10-26] MEDS: VALSARTAN 80 MG TAB PO (08:58)
[2017-10-26] MEDS: ATORVASTATIN 40 MG TAB PO (20:35)
[2017-10-26] MEDS: INSULIN GLARGINE [LANtus] 3 ML PEN SC ×2 (20:38→23:18)
[2017-10-26] MEDS: morphine 2 MG INJ IV (20:38)
[2017-10-27] MEDS: ACCU-CHEK XX (00:28)
[2017-10-27] MEDS: VANCOMYCIN HCL 250 MG/5ML POSYG PO ×3 (00:38→12:08)
[2017-10-27] MEDS: PANTOPRAZOLE (EC) 40 MG TAB PO (06:23)
[2017-10-27] MEDS: INSULIN ASPART [NOVOLOG] 3 ML PEN SC ×2 (07:53→11:50)
[2017-10-27] MEDS: VALSARTAN 80 MG TAB PO (08:31)
[2017-10-27] MEDS: METOPROLOL (XL) 25 MG TAB PO (08:31)
[2017-10-27] MEDS: SACCHAROMYCES BOULARDII 250 MG CAP PO (08:33)
[2017-10-27] MEDS: ASPIRIN 81 MG TAB PO (08:33)
[2017-10-27] MEDS: AMIODARONE 200 MG TAB PO (08:34)
[2017-10-27] MEDS: TAMSULOSIN (SR) 0.4 MG CAP PO (08:34)
[2017-10-27] MEDS: APIXABAN 5 MG TABLET PO (08:34)
[2017-10-27] MEDS: OXYCODONE/ACETAMINOPHEN (5/325) TAB PO (08:42)
== END 2017-10-27 16:00 | disposition home health service (06) | DRG 234 ==
LOC: SDS 07:12 → ICU 10-15 14:30 → SDS 07:12 → TEL 10-19 23:20 → REC 10:46 → MS4 15:31 → ICU 10-15 18:39
PROC: 4A023N7 Measurement of Cardiac Sampling and Pressure, Left Heart, Percutaneous Approach (ICD-10-PCS; 2017-10-13 09:00)
PROC: B211YZZ Fluoroscopy of Multiple Coronary Arteries using Other Contrast (ICD-10-PCS; 2017-10-13 09:00)
PROC: 02100A9 Bypass Coronary Artery, One Artery from Left Internal Mammary with Autologous Arterial Tissue, Open Approach (ICD-10-PCS; principal; 2017-10-13 09:05)
PROC: 021309W Bypass Coronary Artery, Four or More Arteries from Aorta with Autologous Venous Tissue, Open Approach (ICD-10-PCS; 2017-10-13 09:05)
PROC: 06BQ4ZZ Excision of Left Saphenous Vein, Percutaneous Endoscopic Approach (ICD-10-PCS; 2017-10-13 09:05)
PROC: 06BP4ZZ Excision of Right Saphenous Vein, Percutaneous Endoscopic Approach (ICD-10-PCS; 2017-10-13 09:05)
PROC: B211YZZ Fluoroscopy of Multiple Coronary Arteries using Other Contrast (ICD-10-PCS; 2017-10-13 09:05)
PROC: 5A1221Z Performance of Cardiac Output, Continuous (ICD-10-PCS; 2017-10-13 09:05)
DX: I25.10 Atherosclerotic heart disease of native coronary artery without angina pectoris (principal); E87.0 Hyperosmolality and hypernatremia; A04.72 Enterocolitis due to Clostridium difficile, not specified as recurrent; K56.7 Ileus, unspecified; I34.0 Nonrheumatic mitral (valve) insufficiency; I25.82 Chronic total occlusion of coronary artery; E78.5 Hyperlipidemia, unspecified; E11.9 Type 2 diabetes mellitus without complications; R00.1 Bradycardia, unspecified; R06.00 Dyspnea, unspecified; I25.5 Ischemic cardiomyopathy; I10 Essential (primary) hypertension; I95.9 Hypotension, unspecified; I48.0 Paroxysmal atrial fibrillation; I25.2 Old myocardial infarction; Z79.4 Long term (current) use of insulin; Z87.442 Personal history of urinary calculi; Z87.39 Personal history of other diseases of the musculoskeletal system and connective tissue
CPT/HCPCS: 36592; 36600; 71045; 74019; 80048; 80053; 80061; 82803; 82962; 83036; 83735; 84100; 84132; 84443; 84560; 85014; 85025; 85610; 85730; 86850; 86900; 86901; 86920; 87075; 87081; 93005; 93312; 93458; 93880; 94002; 97110; 97116; 97161; 97530; 99217; G0378

== ENCOUNTER 2018-05-24 07:25 | Observation (INO) | payer OTHER ==
[2018-05-24] MEDS: DIAZEPAM 5 MG TAB PO (07:00)
[~2018-05-24 07:25] MED LIST changes: +CEFAZOLIN 1 GM/50 ML (PMX) 50 ML IVPB; -SOD CHLORIDE 0.45% 1,000 ML IV; +SOD CHLORIDE 0.9% 1,000 ML IV
[2018-05-24 08:12] LABS: ADD MAN DIFF? NO
[2018-05-24 08:16] LABS: BASOPHILS % 0.6 % (0.0-2.0); EOSINOPHILS # 0.3 10^3/ul (0.0-0.5); EOSINOPHILS % 4.8 % (0.0-7.0); HEMATOCRIT 47.9 % (42.0-52.0); HEMOGLOBIN 15.8 g/dl (14.0-18.0); LYMPHOCYTES # 1.4 10^3/ul (0.8-2.9); LYMPHOCYTES % 24.8 % (15.0-51.0); MEAN CORPUSCULAR HEMOGLOBIN 30.7 pg (29.0-33.0); MEAN CORPUSCULAR VOLUME 93.2 fl (82.0-101.0); MEAN PLATELET VOLUME 10.3 fl (7.4-10.4); MONOCYTE # 0.4 10^3/ul (0.3-0.9); MONOCYTES % 7.3 % (0.0-11.0); NEUTROPHIL # 3.4 10^3/ul (1.6-7.5); NEUTROPHILS % 61.4 % (39.0-77.0); PLATELET COUNT 188 10^3/UL (140-415); RED BLOOD COUNT 5.14 10^6/ul (4.70-6.10); RED CELL DISTRIBUTION WIDTH 13.3 % (11.5-14.5)
[2018-05-24 08:16] LABS: WHITE BLOOD COUNT 5.5 10^3/ul (4.8-10.8)
[2018-05-24 08:35] LABS: INR 0.93; PROTIME 12.5 Sec (11.9-14.9)
[2018-05-24 08:36] LABS: PARTIAL THROMBOPLASTIN TIME 33.2 Sec (23.0-35.0)
[2018-05-24] MEDS: POLYMYXIN/BACITRACIN 1L IRRIG IRR (09:30)
[2018-05-24] MEDS ORDERED: FENTAnyl 50 MCG/ML VIAL (09:40)
[2018-05-24] MEDS ORDERED: MIDAZOLAM 1 MG/ML 2 ML INJ ×2 (09:40)
[2018-05-24] MEDS ORDERED: BUPIVACAINE 0.5% (SDV) 30 ML INJ (09:42)
[2018-05-24] MEDS ORDERED: LIDOCAINE 2% (MDV) 20 ML INJ (09:42)
[2018-05-24] MEDS ORDERED: SOD CHLORIDE 0.9% 500 ML (09:42)
[2018-05-24] MEDS ORDERED: CEFAZOLIN 1 GM/50 ML (PMX) 50 ML IVPB ×2 (09:43→22:00)
[2018-05-24] MEDS ORDERED: IOHEXOL 350MG/ML 50 ML BTL (09:54)
[2018-05-24 10:13] LABS: ANION GAP 11 (5-13); BLOOD UREA NITROGEN 16 mg/dl (7-20); CALCIUM 9.3 mg/dl (8.4-10.2); CARBON DIOXIDE 23 mmol/L (21-31); CHLORIDE 109 mmol/L (97-110); CHOL/HDL RATIO 3.2 RATIO; CHOLESTEROL 137 mg/dl (100-200); CREATININE 1.04 mg/dl (0.61-1.24); GLUCOSE 99 mg/dl (70-220); HDL CHOLESTEROL 42 mg/dl (31-75); LDL CHOLESTEROL,CALCULATED 69 mg/dl; POTASSIUM 4.3 mmol/L (3.5-5.1); SODIUM 143 mmol/L (135-144); TRIGLYCERIDES 130 mg/dl (0-149)
[2018-05-24] MEDS ORDERED: hydrALAzine 20 MG INJ IV (11:30)
[2018-05-24] MEDS ORDERED: MIDAZOLAM 1 MG/ML 2 ML INJ IV (11:30)
[2018-05-24] MEDS ORDERED: MEPERIDINE 25 MG INJ IV (11:30)
[2018-05-24] MEDS ORDERED: DIPHENHYDRAMINE 50 MG INJ IV (11:30)
[2018-05-24] MEDS ORDERED: ONDANSETRON 4 MG INJ IV ×2 (11:30→13:30)
[2018-05-24] MEDS ORDERED: EPHEDrine SULFATE 50 MG/5 ML SYG IV (11:30)
[2018-05-24] MEDS ORDERED: FENTAnyl 50 MCG/ML VIAL IV ×2 (11:30)
[2018-05-24] MEDS ORDERED: LABETALOL HCL 20MG INJ IV (11:30)
[2018-05-24] MEDS ORDERED: OXYCODONE/ACETAMINOPHEN (5/325) TAB PO ×2 (11:30)
[2018-05-24] MEDS: FENTAnyl 50 MCG/ML VIAL IV (13:08)
[2018-05-24] MEDS ORDERED: NACL 0.9% 3 ML SYG IV (13:30)
[2018-05-24] MEDS ORDERED: METOPROLOL (XL) 25 MG TAB PO (14:00)
[2018-05-24] MEDS: CEFAZOLIN 1 GM/50 ML (PMX) 50 ML IVPB ×3 (17:33→22:10)
[2018-05-24] MEDS: morphine 2 MG INJ IV (17:46)
[2018-05-24] MEDS: SOD CHLORIDE 0.45% 1,000 ML IV (17:55)
[2018-05-24] MEDS: ATORVASTATIN 40 MG TAB PO (20:26)
[2018-05-24] MEDS: TAMSULOSIN (SR) 0.4 MG CAP PO (20:26)
[2018-05-24] MEDS ORDERED: APIXABAN 5 MG TABLET PO (21:00)
[2018-05-25] MEDS: CEFAZOLIN 1 GM/50 ML (PMX) 50 ML IVPB ×2 (05:25→13:59)
[2018-05-25 05:38] LABS: ADD MAN DIFF? NO
[2018-05-25 05:40] LABS: BASOPHILS % 0.5 % (0.0-2.0)
[2018-05-25 05:50] LABS: WHITE BLOOD COUNT 6.5 10^3/ul (4.8-10.8)
[2018-05-25 05:50] LABS: EOSINOPHILS # 0.3 10^3/ul (0.0-0.5); EOSINOPHILS % 3.8 % (0.0-7.0); HEMATOCRIT 43.4 % (42.0-52.0); HEMOGLOBIN 14.4 g/dl (14.0-18.0); MEAN CORPUSCULAR HEMOGLOBIN 30.4 pg (29.0-33.0); MEAN CORPUSCULAR HGB CONC 33.2 g/dl (32.0-37.0); MEAN CORPUSCULAR VOLUME 91.6 fl (82.0-101.0); MEAN PLATELET VOLUME 9.9 fl (7.4-10.4); MONOCYTE # 0.6 10^3/ul (0.3-0.9); MONOCYTES % 9.2 % (0.0-11.0); NEUTROPHIL # 4.5 10^3/ul (1.6-7.5); NEUTROPHILS % 69.7 % (39.0-77.0); PLATELET COUNT 144 10^3/UL (140-415); RED BLOOD COUNT 4.74 10^6/ul (4.70-6.10); RED CELL DISTRIBUTION WIDTH 13.2 % (11.5-14.5)
[2018-05-25 06:07] LABS: PHOSPHORUS 3.4 mg/dl (2.5-4.9)
[2018-05-25 06:07] LABS: MAGNESIUM 1.8 mg/dl (1.7-2.5)
[2018-05-25 06:21] LABS: ALANINE AMINOTRANSFERASE 29 IU/L (13-69); ALBUMIN 3.8 g/dl (3.3-4.9); ALBUMIN/GLOBULIN RATIO 1.52; ALKALINE PHOSPHATASE 75 IU/L (42-121); ANION GAP 9 (5-13); ASPARTATE AMINO TRANSFERASE 25 IU/L (15-46); BILIRUBIN,INDIRECT 0.9 mg/dl (0-1.1); BILIRUBIN,TOTAL 0.9 mg/dl (0.2-1.3); BLOOD UREA NITROGEN 17 mg/dl (7-20); CALCIUM 8.9 mg/dl (8.4-10.2); CARBON DIOXIDE 24 mmol/L (21-31); CHLORIDE 107 mmol/L (97-110); CREATININE 1.02 mg/dl (0.61-1.24); GLUCOSE 91 mg/dl (70-220); SODIUM 140 mmol/L (135-144); TOTAL PROTEIN 6.3 g/dl (6.1-8.1)
[2018-05-25] MEDS: morphine 2 MG INJ IV (09:04)
[2018-05-25] MEDS: LOSARTAN 50 MG TAB PO (09:04)
[2018-05-25] MEDS: ASPIRIN (EC) 81 MG TAB PO (09:04)
== END 2018-05-25 16:10 | disposition home or self-care (01) ==
LOC: SDS 07:25 → REC 12:12 → 6WM 16:24
PROVIDERS: Internal Medicine Clinical Cardiac Electrophysiology
DX: I25.5 Ischemic cardiomyopathy (principal); I10 Essential (primary) hypertension; I25.2 Old myocardial infarction; I25.10 Atherosclerotic heart disease of native coronary artery without angina pectoris; Z95.1 Presence of aortocoronary bypass graft; E78.5 Hyperlipidemia, unspecified; I48.0 Paroxysmal atrial fibrillation; N40.0 Benign prostatic hyperplasia without lower urinary tract symptoms
CPT/HCPCS: 33249; 71045; 80048; 80053; 80061; 83735; 84100; 85025; 85610; 85730; 93005; 99217; G0378